=== PATIENT | male | born 1970 | race Caucasian/White ===

== ENCOUNTER 2016-08-03 10:58 | Emergency (ER) | payer BC ==
[2016-08-03 11:16] VITALS: BP 156/114
[2016-08-03] MEDS ORDERED: Azithromycin 250 MG Tab PO ONE (11:17)
[2016-08-03] MEDS ORDERED: cefTRIAXone 250 MG Vial IM ONE (11:17)
--- NOTE | 2016-08-03 11:17 | EDM.PDOC ---
ED HPI GENERAL MEDICAL PROBLEM - General Stated Complaint: PAIN WITH URINATION Time Seen by Provider: 08/03/16 11:11 Source of Information: Reports: Patient History Limitations: Reports: No Limitations - History of Present Illness INITIAL COMMENTS - FREE TEXT/NARRATIVE: HISTORY AND PHYSICAL: []45-year-old male presenting with penile pain after having sexual contact with a new partner History of Present Illness: [Relates no discharge but has dysuria and penile pain 2 days] Review of Systems: As per history of present illness and below otherwise all systems reviewed and negative. Past medical history: As per history of present illness and as reviewed below otherwise noncontributory. Surgical history: As per history of present illness and as reviewed below otherwise noncontributory. Social history: No reported history of drug or alcohol abuse. Family history: As per history of present illness and as reviewed below otherwise noncontributory. Physical exam: Alert oriented male answering questions appropriately, HEENT: Atraumatic, normocehpalic, pupils reactive, negative for conjunctival pallor or scleral icterus, mucous membranes moist, throat clear, neck supple, nontender, trachea midline. Lungs: Clear to auscultation, breath sounds equal bilaterally, chest non tender. Heart: S1S2, regular, negative for clicks, rubs, or JVD. Abdomen: Soft, nondistended, nontender. Negative for masses or hepatossplenmegaly. Negative for costovertebral tenderness. Pelvis: Stable nontender. Genitourinary: Deferred. Rectal: Deferred Extremities: Atraumatic, negative for cords or calf pain. Neurovascular unremarkable. Neuro: Awake, alert, oriented. Cranial nerves II through XII unremarkable. Cerebellum unremarkable. Motor and sensory unremarkable throughout. Exam nonfocal. Diagnostics: [Urinalysis, chlamydia and GC] Therapeutics: [Zithromax gram by mouth Rocephin 250 IM] Impression: [high risk sexual activity penile pain/discharge ] Plan: [home use condoms ] Definitive disposition and diagnosis as appropriate pending reevaluation and review of above. Onset: Sudden (yesterday) Duration: Day(s): (1) Location: Reports: Other (Penile pain) Quality: Reports: Burning Severity: Moderate Improves with: Reports: None Worsens with: Reports: None Context: Reports: Other (Sexual contact with a new partner) Penile Pain Score (Numeric/FACES): 4 - Related Data Allergies Allergy/AdvReac Type Severity Reaction Status Date / Time No Known Allergies Allergy Verified 08/03/16 11:16 Home Meds: Home Meds FLUoxetine [PROzac] 20 mg PO DAILY 09/24/13 [History] Triamterene/Hydrochlorothiazid [Triamterene-HCTZ 37.5-25 MG] 1 each PO DAILY [History] Past Medical History Other HEENT History: miniers dse. - Past Surgical History Other Musculoskeletal Surgeries/Procedures:: thumb surgery Social & Family History - Tobacco Use Smoking Status *Q: Current Every Day Smoker Years of Tobacco use: 20 Packs/Tins Daily: 1 - Alcohol Use Days Per Week of Alcohol Use: 0 - Recreational Drug Use Recreational Drug Use: No ED ROS GENERAL - Review of Systems Review Of Systems: ROS reveals no pertinent complaints other than HPI. ED EXAM, RENAL/ - Physical Exam Exam: See Below (see dictation) Course - Vital Signs Last Recorded V/S: Last Vital Signs Temp 36.2 C 08/03/16 11:12 Pulse 100 08/03/16 11:12 Resp 16 08/03/16 11:12 BP 156/114 H 08/03/16 11:12 Pulse Ox 98 08/03/16 11:12 - Orders/Labs/Meds Orders: Active Orders 24 hr Category Date Time Status CHLAMYDIA TRACHOMATIS/GC AMPLF Stat Lab 08/03/16 11:14 Ordered UA W/MICROSCOPIC [URIN] Stat Lab 08/03/16 11:10 Received Labs: Laboratory Tests 08/03/16 Range/Units 11:10 Urine Color YELLOW Urine Appearance CLEAR Urine pH 7.0 (5.0-8.0) Ur Specific [place] 1.015 (1.001-1.035) Urine Protein NEGATIVE (NEGATIVE) mg/dL Urine Glucose (UA) NEGATIVE (NEGATIVE) mg/dL Urine Ketones NEGATIVE (NEGATIVE) mg/dL Urine Occult Blood NEGATIVE (NEGATIVE) Urine Nitrite NEGATIVE (NEGATIVE) Urine Bilirubin NEGATIVE (NEGATIVE) Urine Urobilinogen 2.0 H (<2.0) EU/dL Ur Leukocyte Esterase NEGATIVE (NEGATIVE) Meds: Medications Discontinued Medications Generic Name Dose Route Start Last Admin Trade Name Freq PRN Reason Stop Dose Admin Azithromycin 1,000 mg 08/03/16 11:17 08/03/16 11:28 Zithromax PO 08/03/16 11:18 1,000 mg Q24H ONE Administration Ceftriaxone Sodium 250 mg 08/03/16 11:17 08/03/16 11:28 Rocephin IM 08/03/16 11:18 250 mg ONETIME ONE Administration Lidocaine HCl Confirm 08/03/16 11:23 Xylocaine-Mpf 1% Administered 08/03/16 11:24 Dose 2 mls @ as directed .ROUTE .STK-MED ONE Departure - Departure Time of Disposition: 11:50 Disposition: Home, Self-Care 01 Condition: good Clinical Impression: Dysuria - Discharge Information Additional Instructions: The following information is given to patients seen in the emergency department who are being discharged to home. This information is to outline your options for follow-up care. We provide all patients seen in our emergency department with a follow-up referral. The need for follow-up, as well as the timing and circumstances, are variable depending upon the specifics of your emergency department visit. If you don't have a primary care physician on staff, we will provide you with a referral. We always advise you to contact your personal physician following an emergency department visit to inform them of the circumstance of the visit and for follow-up with them and/or the need for any referrals to a consulting specialist. The emergency department will also refer you to a specialist when appropriate. This referral assures that you have the opportunity for followup care with a specialist. All of these measure are taken in an effort to provide you with optimal care, which includes your followup. Under all circumstances we always encourage you to contact your private physician who remains a resource for coordinating your care. When calling for followup care, please make the office aware that this follow-up is from your recent emergency room visit. If for any reason you are refused follow-up, please contact the [facility] emergency department at and asked to speak to the emergency department charge nurse. He received an injection of Rocephin You took tablets of Zithromax Use condoms during sexual activity Handout was given for the clinics in [facility] to establish primary care [address] [place] [address] [facility] [address] [place] [id number] - My Orders Last 24 Hours: My Active Orders 08/03/16 11:10 UA W/MICROSCOPIC [URIN] Stat 08/03/16 11:14 CHLAMYDIA TRACHOMATIS/GC AMPLF Stat - Assessment/Plan Last 24 Hours: My Active Orders 08/03/16 11:10 UA W/MICROSCOPIC [URIN] Stat 08/03/16 11:14 CHLAMYDIA TRACHOMATIS/GC AMPLF Stat
[2016-08-03] MEDS ORDERED: Lidocaine 1% 2 ML ONE (11:23)
== END 2016-08-03 11:58 | disposition home or self-care (01) ==
LOC: MW.ED 10:58
DX: N48.89 Other specified disorders of penis (principal); R30.0 Dysuria; Z72.51 High risk heterosexual behavior; F17.210 Nicotine dependence, cigarettes, uncomplicated; Z98.890 Other specified postprocedural states; Z79.899 Other long term (current) drug therapy
CPT/HCPCS: 81001; 87491; 87591; 96372; 99283; A9270; J0696

== ENCOUNTER 2016-08-10 03:50 | Emergency (ER) | payer BC ==
[2016-08-10] MEDS ORDERED: Proparacaine 0.5% Ophth Soln 15 ML Bottle EYERT STA (04:06)
[2016-08-10] MEDS ORDERED: cefTRIAXone 250 MG Vial IM ONE (04:51)
[2016-08-10] MEDS ORDERED: Azithromycin 250 MG Tab PO ONE (04:51)
[2016-08-10] MEDS ORDERED: Erythromycin Base 0.5% Ophth Oint 1 GM Tube EYELF ONE (04:51)
--- NOTE | 2016-08-10 04:57 | EDM.PDOC ---
ED HPI GENERAL MEDICAL PROBLEM - General Chief Complaint: Eye Problems Stated Complaint: PAIN IN RIGHT EYE Time Seen by Provider: 08/10/16 03:55 Source of Information: Reports: Patient History Limitations: Reports: No Limitations - History of Present Illness INITIAL COMMENTS - FREE TEXT/NARRATIVE: HISTORY AND PHYSICAL: History of present illness: [Patient complaining of right eye redness and mild lid swelling for about 36 hours. Patient recently had an STD for which he was treated. 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 It became mildly red, he rubbed it became more irritated with mild lid swelling and he now presents emergency department for evaluation. Patient is concerned that his STD might be associated with his "pinkeye. "] Review of systems: As per history of present illness and below otherwise all systems reviewed and negative. Past medical history: As per history of present illness and as reviewed below otherwise noncontributory. Surgical history: As per history of present illness and as reviewed below otherwise noncontributory. Social history: No reported history of drug or alcohol abuse. Family history: As per history of present illness and as reviewed below otherwise noncontributory. Physical exam: Left eye normal, right eye with trace lid swelling/edema, lids everted with no foreign body visible. Minimal scleral injection. No visible corneal foreign body or abnormality. Positive relief with Alcaine topical. No corneal abnormality visible with floor seen/Morales lamp evaluation. Slit-lamp examination reveals no gross abnormality of the cornea iris or anterior chamber. No cell and flare. Normal exam except for injection and minimal lid edema. HEENT: Normocephalic, atraumatic, pupils normal and symmetrical, supple neck, no meningismus, normal color Lungs: Normal and symmetrical chest wall excursion bilateral with no tachypnea or increased work of breathing, grossly normal chest exam Heart: No tachycardia in triage Abdomen: Normal-appearing, nondistended, no visible mass or asymmetry Pelvis: Normal-appearing Genitourinary: Deferred Rectal exam: Deferred Extremities: Atraumatic, normal use and range of motion, no visible evidence of gross neurovascular compromise Neuro: Awake, alert, oriented. Normal and appropriate mental status. Cranial nerves grossly unremarkable. Motor function normal. Nonfocal neurologic exam. Diagnostics: [Morales lamp exam with fluorescein by ERWIN Winn negative for diet uptake. Slit- lamp exam by ERWIN Winn unremarkable ] Therapeutics: [Antibiotics administered conjunctivitis] Impression: [] Plan: [Signs and symptoms consistent with conjunctivitis. Patient with recent STD. Covered for gonorrhea and Chlamydia. She with no evidence of chronic conjunctivitis symptoms have only been for about 36 hours and they're mild. No clinical evidence of hyperacute conjunctivitis as well. Patient stable, no further workup or treatment indicated at this time. He is aware of critical importance of close follow-up with ophthalmology and to return to the ED for any new severe or worsening symptoms Definitive disposition and diagnosis as appropriate pending reevaluation and review of above. Right Eye Pain Score (Numeric/FACES): 3 - Related Data Allergies Allergy/AdvReac Type Severity Reaction Status Date / Time No Known Allergies Allergy Verified 08/03/16 11:16 Home Meds: Home Meds FLUoxetine [PROzac] 20 mg PO DAILY 09/24/13 [History] Triamterene/Hydrochlorothiazid [Triamterene-HCTZ 37.5-25 MG] 1 each PO DAILY [History] Erythromycin Base [Erythromycin 0.5% Ophth Oint] 1 applic OP Q4HR #1 tube [Rx] Past Medical History HEENT History: Reports: Other (See Below) Other HEENT History: miniers dse. Cardiovascular History: Reports: Hypertension Respiratory History: Reports: None Gastrointestinal History: Reports: None Genitourinary History: Reports: None Musculoskeletal History: Reports: None Neurological History: Reports: None Psychiatric History: Reports: Anxiety Endocrine/Metabolic History: Reports: None Hematologic History: Reports: None Immunologic History: Reports: None Oncologic (Cancer) History: Reports: None Dermatologic History: Reports: None - Infectious Disease History Infectious Disease History: Reports: Chicken Pox - Past Surgical History Head Surgeries/Procedures: Reports: None Cardiovascular Surgical History: Reports: None Respiratory Surgical History: Reports: None GI Surgical History: Reports: None Male Surgical History: Reports: None Endocrine Surgical History: Reports: None Neurological Surgical History: Reports: None Musculoskeletal Surgical History: Reports: Amputation Other Musculoskeletal Surgeries/Procedures:: thumb surgery Dermatological Surgical History: Reports: None Social & Family History - Family History Family Medical History: Noncontributory - Tobacco Use Smoking Status *Q: Current Every Day Smoker Years of Tobacco use: 25 Packs/Tins Daily: 0.5 - Caffeine Use Caffeine Use: Reports: Coffee - Alcohol Use Days Per Week of Alcohol Use: 0 - Recreational Drug Use Recreational Drug Use: No ED ROS GENERAL - Review of Systems Review Of Systems: See Below ED EXAM GENERAL W FULL EYE - Physical Exam Exam: See Below (History of present illness) Course - Vital Signs Last Recorded V/S: Last Vital Signs Temp 36.2 C 08/10/16 05:25 Pulse 83 08/10/16 05:25 Resp 17 08/10/16 05:25 BP 161/105 H 08/10/16 05:25 Pulse Ox 100 08/10/16 05:25 - Orders/Labs/Meds Meds: Medications Discontinued Medications Generic Name Dose Route Start Last Admin Trade Name Jm PRN Reason Stop Dose Admin Azithromycin 1,000 mg 08/10/16 04:51 08/10/16 05:04 Zithromax PO 08/10/16 04:52 1,000 mg ONETIME ONE Administration Ceftriaxone Sodium 250 mg 08/10/16 04:51 08/10/16 05:06 Rocephin IM 08/10/16 04:52 250 mg ONETIME ONE Administration Erythromycin 1 gm 08/10/16 04:51 08/10/16 05:08 Erythromycin 0.5% Ophth Oint EYELF 08/10/16 04:52 1 gm ONETIME ONE Administration Lidocaine HCl Confirm 08/10/16 05:01 08/10/16 05:07 Xylocaine-Mpf 1% Administered 08/10/16 05:02 1 ml Dose Administration 2 mls @ as directed .ROUTE .STK-MED ONE Proparacaine HCl 1 ml 08/10/16 04:06 08/10/16 04:10 Proparacaine 0.5% Ophth Soln EYERT 08/10/16 04:07 1 ml NOW STA Administration Departure - Departure Time of Disposition: 04:52 Disposition: Home, Self-Care 01 Condition: Good Clinical Impression: Conjunctivitis - Discharge Information Prescriptions: Erythromycin Base [Erythromycin 0.5% Ophth Oint] 1 applic OP Q4HR #1 tube Instructions: Bacterial Conjunctivitis, [id number] Referrals: PCP,None [Primary Care Provider] - Forms: ED Department Discharge Additional Instructions: You have conjunctivitis. This may be a bacterial infection, a viral infection, a result of allergic exposure in your eye, or associated with an irritated or chemical conjunctivitis. You're being treated with ointment and medication to cover the possibility of a bacterial infection. Use ointment 1/4" in the affected eye 4 times a day and at bedtime. Follow up with Dr. Galeas (eye doctor ). Call in the morning for an appointment in one to 2 days return immediately for new severe or worsening symptoms.
[2016-08-10] MEDS ORDERED: Lidocaine 1% 2 ML ONE (05:01)
[2016-08-10 05:31] VITALS: BP 161/105
== END 2016-08-10 05:28 | disposition home or self-care (01) ==
LOC: MW.ED 03:50
DX: H10.9 Unspecified conjunctivitis (principal); I10 Essential (primary) hypertension; F17.210 Nicotine dependence, cigarettes, uncomplicated; F41.9 Anxiety disorder, unspecified; Z98.890 Other specified postprocedural states; Z79.899 Other long term (current) drug therapy
CPT/HCPCS: 99282; A9270; J0696; 99283

== ENCOUNTER 2017-02-21 10:09 | Emergency (ER) | payer BC ==
[2017-02-21] MEDS ORDERED: Ketorolac 60 MG/2 ML SDV IM ONE (10:23)
--- NOTE | 2017-02-21 10:23 | EDM.PDOC ---
ED HPI GENERAL MEDICAL PROBLEM - General Chief Complaint: Cardiovascular Problem Stated Complaint: TOOTHACHE Time Seen by Provider: 02/21/17 10:20 Source of Information: Reports: Patient - History of Present Illness INITIAL COMMENTS - FREE TEXT/NARRATIVE: HISTORY AND PHYSICAL: History of present illness: []Patient presents with dental pain right upper tooth discomfort with hot and cold sensitivity she rates pain 8 out of 10 nonradiating no swelling nothing for drainage No fever nausea vomiting chills sweats Review of systems: As per history of present illness and below otherwise all systems reviewed and negative. Past medical history: As per history of present illness and as reviewed below otherwise noncontributory. Surgical history: As per history of present illness and as reviewed below otherwise noncontributory. Social history: No reported history of drug or alcohol abuse. Family history: As per history of present illness and as reviewed below otherwise noncontributory. Physical exam: HEENT: Atraumatic, normocephalic, pupils reactive, negative for conjunctival pallor or scleral icterus, mucous membranes moist, throat clear, neck supple, nontender, trachea midline. No evidence of abscess at this time dentition is fairly healthy right upper tooth consistent with what appears to be a cavity causing the pain Lungs: Clear to auscultation, breath sounds equal bilaterally, chest nontender. Heart: S1S2, regular, negative for clicks, rubs, or JVD. Abdomen: Soft, nondistended, nontender. Negative for masses or hepatosplenomegaly. Negative for costovertebral tenderness. Pelvis: Stable nontender. Genitourinary: Deferred. Rectal: Deferred. Extremities: Atraumatic, negative for cords or calf pain. Neurovascular unremarkable. Neuro: Awake, alert, oriented. Cranial nerves II through XII unremarkable. Cerebellum unremarkable. Motor and sensory unremarkable throughout. Exam nonfocal. Diagnostics: []Clinical Therapeutics: []Toradol 60 IM Temporaries filling may benefit Amoxicillin Toradol Temporaries filling Follow-up with dentist as soon as possible Impression: []Dental pain Definitive disposition and diagnosis as appropriate pending reevaluation and review of above. - Related Data Allergies Allergy/AdvReac Type Severity Reaction Status Date / Time No Known Allergies Allergy Verified 02/21/17 10:17 Home Meds: Home Meds FLUoxetine [PROzac] 20 mg PO DAILY 09/24/13 [History] Triamterene/Hydrochlorothiazid [Triamterene-HCTZ 37.5-25 MG] 1 each PO DAILY [History] Losartan [Cozaar] 25 mg PO DAILY 02/21/17 [History] Past Medical History HEENT History: Reports: Other (See Below) Other HEENT History: guicho dsirais. Cardiovascular History: Reports: Hypertension Respiratory History: Reports: None Gastrointestinal History: Reports: None Genitourinary History: Reports: None Musculoskeletal History: Reports: None Neurological History: Reports: None Psychiatric History: Reports: Anxiety Endocrine/Metabolic History: Reports: None Hematologic History: Reports: None Immunologic History: Reports: None Oncologic (Cancer) History: Reports: None Dermatologic History: Reports: None - Infectious Disease History Infectious Disease History: Reports: Chicken Pox - Past Surgical History Head Surgeries/Procedures: Reports: None Cardiovascular Surgical History: Reports: None Respiratory Surgical History: Reports: None GI Surgical History: Reports: None Male Surgical History: Reports: None Endocrine Surgical History: Reports: None Neurological Surgical History: Reports: None Musculoskeletal Surgical History: Reports: Amputation Other Musculoskeletal Surgeries/Procedures:: thumb surgery Dermatological Surgical History: Reports: None Social & Family History - Family History Family Medical History: Noncontributory - Tobacco Use Smoking Status *Q: Current Every Day Smoker Years of Tobacco use: 25 Packs/Tins Daily: 0.5 - Caffeine Use Caffeine Use: Reports: Coffee - Alcohol Use Days Per Week of Alcohol Use: 0 - Recreational Drug Use Recreational Drug Use: No ED ROS GENERAL - Review of Systems Review Of Systems: ROS reveals no pertinent complaints other than HPI. ED EXAM, GENERAL - Physical Exam Exam: See Below Course - Vital Signs Last Recorded V/S: Last Vital Signs Temp 96.8 F 02/21/17 10:15 Pulse 93 02/21/17 10:15 Resp 12 02/21/17 10:15 BP 143/100 H 02/21/17 10:15 Pulse Ox 98 02/21/17 10:15 Departure - Departure Time of Disposition: 10:22 Disposition: Home, Self-Care 01 Condition: Good Clinical Impression: Pain, dental Referrals: PCP,None [Primary Care Provider] - Additional Instructions: The following information is given to patients seen in the emergency department who are being discharged to home. This information is to outline your options for follow-up care. We provide all patients seen in our emergency department with a follow-up referral. The need for follow-up, as well as the timing and circumstances, are variable depending upon the specifics of your emergency department visit. If you don't have a primary care physician on staff, we will provide you with a referral. We always advise you to contact your personal physician following an emergency department visit to inform them of the circumstance of the visit and for follow-up with them and/or the need for any referrals to a consulting specialist. The emergency department will also refer you to a specialist when appropriate. This referral assures that you have the opportunity for follow-up care with a specialist. All of these measure are taken in an effort to provide you with optimal care, which includes your follow-up. Under all circumstances we always encourage you to contact your private physician who remains a resource for coordinating your care. When calling for follow-up care, please make the office aware that this follow-up is from your recent emergency room visit. If for any reason you are refused follow-up, please contact the [facility] emergency department at and asked to speak to the emergency department charge nurse.
[2017-02-21 10:56] VITALS: BP 125/94
== END 2017-02-21 10:53 | disposition home or self-care (01) ==
LOC: MW.ED 10:09
DX: K08.89 Other specified disorders of teeth and supporting structures (principal); F17.210 Nicotine dependence, cigarettes, uncomplicated; Z79.899 Other long term (current) drug therapy; I10 Essential (primary) hypertension
CPT/HCPCS: 93005; 96372; 99282; J1885; 99283

== ENCOUNTER 2018-03-13 20:12 | Emergency (ER) | payer BC ==
[2018-03-13] MEDS ORDERED: predniSONE 20 MG Tab PO ONE (21:44)
--- NOTE | 2018-03-13 21:49 | EDM.PDOC ---
ED HPI GENERAL MEDICAL PROBLEM - General Chief Complaint: Lower Extremity Injury/Pain Stated Complaint: RIGHT FOOT PAIN Time Seen by Provider: 03/13/18 21:35 Source of Information: Reports: Patient History Limitations: Reports: No Limitations - History of Present Illness INITIAL COMMENTS - FREE TEXT/NARRATIVE: Resents reporting right lateral foot tenderness. The patient states that he noticed some tenderness in his right lateral foot yesterday and then at 3:00 this morning it woke him up in the night and has been worsening all day. He does not know of any injury. No personal or family history of gout. He does not drink alcohol. Pain is mostly with weightbearing. Right Feet Pain Score (Numeric/FACES): 9 - Related Data Allergies Allergy/AdvReac Type Severity Reaction Status Date / Time No Known Allergies Allergy Verified 03/13/18 20:50 Home Meds: Home Meds FLUoxetine [PROzac] 20 mg PO DAILY 09/24/13 [History] Triamterene/Hydrochlorothiazid [Triamterene-HCTZ 37.5-25 MG] 1 each PO DAILY [History] Losartan [Cozaar] 25 mg PO DAILY 02/21/17 [History] Indomethacin 50 mg PO TID #6 capsule 03/13/18 [Rx] predniSONE [Prednisone] 2 tab PO DAILY #6 tablet 03/13/18 [Rx] Past Medical History HEENT History: Reports: Other (See Below) Other HEENT History: miniers dse. Cardiovascular History: Reports: Hypertension Respiratory History: Reports: None Gastrointestinal History: Reports: None Genitourinary History: Reports: None Musculoskeletal History: Reports: None Neurological History: Reports: None Psychiatric History: Reports: Anxiety Endocrine/Metabolic History: Reports: None Hematologic History: Reports: None Immunologic History: Reports: None Oncologic (Cancer) History: Reports: None Dermatologic History: Reports: None - Infectious Disease History Infectious Disease History: Reports: Chicken Pox, Mononucleosis - Past Surgical History Head Surgeries/Procedures: Reports: None Cardiovascular Surgical History: Reports: None Respiratory Surgical History: Reports: None GI Surgical History: Reports: None Male Surgical History: Reports: None Endocrine Surgical History: Reports: None Neurological Surgical History: Reports: None Musculoskeletal Surgical History: Reports: Amputation Other Musculoskeletal Surgeries/Procedures:: thumb surgery Dermatological Surgical History: Reports: None Social & Family History - Family History Family Medical History: Noncontributory - Tobacco Use Smoking Status *Q: Current Every Day Smoker Years of Tobacco use: 25 Packs/Tins Daily: 0.5 - Caffeine Use Caffeine Use: Reports: Coffee - Recreational Drug Use Recreational Drug Use: No Review of Systems - Review of Systems Review Of Systems: ROS reveals no pertinent complaints other than HPI. ED EXAM, GENERAL - Physical Exam Exam: See Below Exam Limited By: No Limitations General Appearance: Alert, No Apparent Distress Nose: Normal Inspection Throat/Mouth: Normal Inspection Head: Atraumatic, Normocephalic Neck: Normal Inspection Respiratory/Chest: No Respiratory Distress Cardiovascular: Normal Peripheral Pulses GI/Abdominal: Soft Extremities: Other (Right lateral foot over the fifth MP joint and forefoot is mildly erythematous, mildly swollen and exquisitely tender. Full range of motion of all toes and ankle without hesitation or limitation) Neurological: Alert, Oriented Psychiatric: Normal Affect, Normal Mood Skin Exam: Warm, Dry, Intact, Normal Color, No Rash Course - Vital Signs Last Recorded V/S: Last Vital Signs Temp 36.6 C 03/13/18 20:48 Pulse 103 H 03/13/18 20:48 Resp 18 03/13/18 20:48 BP 133/90 03/13/18 20:48 Pulse Ox 98 03/13/18 20:48 Departure - Departure Time of Disposition: 21:45 Disposition: Home, Self-Care 01 Condition: Good Clinical Impression: Gout attack - Discharge Information Prescriptions: Indomethacin 50 mg PO TID #6 capsule predniSONE [Prednisone] 2 tab PO DAILY #6 tablet Referrals: PCP,None [Primary Care Provider] - Albin Beckham [Ordering Only Provider] - [facility] [Outside] Additional Instructions: 1. Prednisone 2 tabs once daily for three days 2. Indomethacin 50 mg three times a day with food next 2 days. 3. Follow up with primary care provider to discuss definitive management.
[2018-03-13 22:12] VITALS: BP 125/98
== END 2018-03-13 22:14 | disposition home or self-care (01) ==
LOC: MW.ED 20:12
DX: M10.9 Gout, unspecified (principal); I10 Essential (primary) hypertension; F17.210 Nicotine dependence, cigarettes, uncomplicated; Z79.899 Other long term (current) drug therapy
CPT/HCPCS: 99283; A9270

== ENCOUNTER 2018-10-08 17:38 | Emergency (ER) | payer BC ==
[2018-10-08 17:56] VITALS: BP 123/85; PULSE 93
[2018-10-08] MEDS ORDERED: Lidocaine 1% PF 2 ML SDV INJECT ONE (18:05)
[2018-10-08] MEDS ORDERED: cefTRIAXone 250 MG in Lidocaine 1% 1 ML IM ONE (18:05)
--- NOTE | 2018-10-08 18:08 | EDM.PDOC ---
ED HPI GENERAL MEDICAL PROBLEM - General Chief Complaint: Genitourinary Problem Stated Complaint: STD CHECK Time Seen by Provider: 10/08/18 17:43 Source of Information: Reports: Patient History Limitations: Reports: No Limitations - History of Present Illness INITIAL COMMENTS - FREE TEXT/NARRATIVE: HISTORY AND PHYSICAL: History of present illness: Patient is a 47-year-old male who presents to the emergency room with complaints of penile discharge and dysuria over the past several days. He states he is sexually active although has not been exposed to any STDs that he is aware of. States he is in a monogamous relationship and does not have any other sexual partners. Patient denies any fever, chills, headache, change in vision, syncope or near syncope. Denies any other GI or symptoms. Has not noted any blood in urine or stool. Denies any testicular pain, swelling or erythema. Denies any penile lesions. Patient has been eating and drinking appropriately. Review of systems: As per history of present illness and below otherwise all systems reviewed and negative. Past medical history: As per history of present illness and as reviewed below otherwise noncontributory. Surgical history: As per history of present illness and as reviewed below otherwise noncontributory. Social history: See social history for further information Family history: As per history of present illness and as reviewed below otherwise noncontributory. Physical exam: General: Well developed and well nourished 47 year old male. Alert and orientated. Nontoxic appearing and in no acute distress. HEENT: Atraumatic, normocephalic, pupils equal and reactive bilaterally, negative for conjunctival pallor or scleral icterus, mucous membranes moist, trachea midline. No drooling or trismus noted. No meningeal signs. No hot potato voice noted. Lungs: Clear to auscultation, breath sounds equal bilaterally, chest nontender. Heart: S1S2, regular rate and rhythm without overt murmur Abdomen: Soft, nondistended, nontender. Negative for masses. Negative for costovertebral tenderness. Pelvis: Stable nontender. Genitourinary: Refuses exam Skin: Intact, warm, dry. No lesions or rashes noted. Extremities: Atraumatic, moves all extremities per self without difficulty or deficits, negative for cords or calf pain. Neurovascular unremarkable. Neuro: Awake, alert, oriented. Cranial nerves II through XII unremarkable. Cerebellum unremarkable. Motor and sensory unremarkable throughout. Exam nonfocal. Diagnostics: UA/gonorrhea and chlamydia Therapeutics: Rocephin, azithromycin Prescription: None Impression: Encounter for STD testing Plan: 1. Please abstain from sexual intercourse until the lab results have returned. Always use protection to minimized risk of STD exposure 2. Take the medications as directed. The gonorrhea and chlamydia tests are send out labs, therefore will not be available for 2-3 business days. 3. Please follow-up with your primary care provider in the next 1-2 days. [facility] does offer free STD testing, please follow-up with them for further STD testing needs. Return to the ED as needed and as discussed. Definitive disposition and diagnosis as appropriate pending reevaluation and review of above. Generalized Pain Score (Numeric/FACES): 2 - Related Data Allergies Allergy/AdvReac Type Severity Reaction Status Date / Time No Known Allergies Allergy Verified 10/08/18 17:52 Home Meds: Home Meds FLUoxetine [PROzac] 20 mg PO DAILY 09/24/13 [History] Triamterene/Hydrochlorothiazid [Triamterene-HCTZ 37.5-25 MG] 1 each PO DAILY [History] Losartan [Cozaar] 25 mg PO DAILY 02/21/17 [History] Past Medical History HEENT History: Reports: Other (See Below) Other HEENT History: miniers dse. Cardiovascular History: Reports: Hypertension Respiratory History: Reports: None Gastrointestinal History: Reports: None Genitourinary History: Reports: None Musculoskeletal History: Reports: None Neurological History: Reports: None Psychiatric History: Reports: Anxiety Endocrine/Metabolic History: Reports: None Hematologic History: Reports: None Immunologic History: Reports: None Oncologic (Cancer) History: Reports: None Dermatologic History: Reports: None - Infectious Disease History Infectious Disease History: Reports: Chicken Pox - Past Surgical History Head Surgeries/Procedures: Reports: None Cardiovascular Surgical History: Reports: None Respiratory Surgical History: Reports: None GI Surgical History: Reports: None Male Surgical History: Reports: None Endocrine Surgical History: Reports: None Neurological Surgical History: Reports: None Musculoskeletal Surgical History: Reports: Amputation Other Musculoskeletal Surgeries/Procedures:: thumb surgery Dermatological Surgical History: Reports: None Social & Family History - Family History Family Medical History: Noncontributory - Tobacco Use Smoking Status *Q: Current Every Day Smoker Years of Tobacco use: 27 Packs/Tins Daily: 0.5 - Caffeine Use Caffeine Use: Reports: Soda - Recreational Drug Use Recreational Drug Use: No ED ROS GENERAL - Review of Systems Review Of Systems: ROS reveals no pertinent complaints other than HPI. ED EXAM, RENAL/ - Physical Exam Exam: See Below (See dictation) Course - Vital Signs Last Recorded V/S: Last Vital Signs Temp 97.4 F 10/08/18 17:53 Pulse 93 10/08/18 17:53 Resp 18 10/08/18 17:53 BP 123/85 10/08/18 17:53 Pulse Ox 97 10/08/18 17:53 - Orders/Labs/Meds Orders: Active Orders 24 hr Category Date Time Status CHLAMYDIA AND GONORRHEA BY [facility] Stat Lab 10/08/18 18:10 Received UA RFX ANDRA AND CULT IF INDIC [URIN] Stat Lab 10/08/18 18:00 Ordered Meds: Medications Discontinued Medications Generic Name Dose Route Start Last Admin Trade Name Jm PRN Reason Stop Dose Admin Azithromycin 1,000 mg 10/08/18 18:15 10/08/18 18:38 Zithromax PO 1,000 mg Q24H JEFF Administration Ceftriaxone Sodium 250 mg/ 1 mls @ 1 mls/sec 10/08/18 18:05 10/08/18 18:38 Lidocaine HCl IM 10/08/18 18:06 1 mls/sec ONETIME ONE Administration Lidocaine HCl 2 ml 10/08/18 18:05 10/08/18 18:40 Xylocaine-Mpf 1% INJECT 10/08/18 18:06 Not Given ONETIME ONE Departure - Departure Time of Disposition: 18:07 Disposition: Home, Self-Care 01 Clinical Impression: Screen for STD (sexually transmitted disease) - Discharge Information Instructions: Sexually Transmitted Disease, [id number] Referrals: PCP,Unknown [Primary Care Provider] - Forms: ED Department Discharge Additional Instructions: The following information is given to patients seen in the emergency department who are being discharged to home. This information is to outline your options for follow-up care. We provide all patients seen in our emergency department with a follow-up referral. The need for follow-up, as well as the timing and circumstances, are variable depending upon the specifics of your emergency department visit. If you don't have a primary care physician on staff, we will provide you with a referral. We always advise you to contact your personal physician following an emergency department visit to inform them of the circumstance of the visit and for follow-up with them and/or the need for any referrals to a consulting specialist. The emergency department will also refer you to a specialist when appropriate. This referral assures that you have the opportunity for follow-up care with a specialist. All of these measure are taken in an effort to provide you with optimal care, which includes your follow-up. Under all circumstances we always encourage you to contact your private physician who remains a resource for coordinating your care. When calling for follow-up care, please make the office aware that this follow-up is from your recent emergency room visit. If for any reason you are refused follow-up, please contact the [facility] Emergency Department at and asked to speak to the emergency department charge nurse. [facility] [address] [place] [id number] [facility] [address] [place] [id number] 1. Please abstain from sexual intercourse until the lab results have returned. Always use protection to minimized risk of STD exposure 2. Take the medications as directed. The gonorrhea and chlamydia tests are send out labs, therefore will not be available for 2-3 business days. 3. Please follow-up with your primary care provider in the next 1-2 days. [facility] does offer free STD testing, please follow-up with them for further STD testing needs. Return to the ED as needed and as discussed. - My Orders Last 24 Hours: My Active Orders 10/08/18 18:00 UA RFX ANDRA AND CULT IF INDIC [URIN] Stat 10/08/18 18:10 CHLAMYDIA AND GONORRHEA BY TMA Stat - Assessment/Plan Last 24 Hours: My Active Orders 10/08/18 18:00 UA RFX ANDRA AND CULT IF INDIC [URIN] Stat 10/08/18 18:10 CHLAMYDIA AND GONORRHEA BY TMA Stat
[2018-10-08] MEDS ORDERED: Azithromycin 250 MG Tab PO SCH (18:15)
== END 2018-10-08 18:49 | disposition home or self-care (01) ==
LOC: MW.ED 17:38
DX: Z11.3 Encounter for screening for infections with a predominantly sexual mode of transmission (principal); I10 Essential (primary) hypertension; F17.210 Nicotine dependence, cigarettes, uncomplicated; Z79.899 Other long term (current) drug therapy
CPT/HCPCS: 87491; 87591; 96372; 99283; A9270; J0696; J2001; 99282

== ENCOUNTER 2020-07-07 08:12 | Emergency (ER) | payer BC ==
[2020-07-07 09:27] LABS: CARBON DIOXIDE,CO2 23.9 mmol/L (21.0-32.0); POTASSIUM,K 3.7 mmol/L (3.5-5.1)
[2020-07-07 11:01] VITALS: PULSE 83
[2020-07-07] MEDS ORDERED: Sodium Chloride 0.9% 1,000 ML IV ONE (11:13)
--- NOTE | 2020-07-07 11:13 | EDM.PDOC ---
ED HPI GENERAL MEDICAL PROBLEM - General Chief Complaint: General Stated Complaint: POSSIBLE CO2 POISIONING Time Seen by Provider: 07/07/20 08:24 Source of Information: Reports: Patient History Limitations: Reports: No Limitations - History of Present Illness INITIAL COMMENTS - FREE TEXT/NARRATIVE: Patient is a 49-year-old male who presents today for nausea and fatigue. Patien t states that he was working in his car garage without the door open and thought he might have carbon monoxide poisoning. Patient states that entire since that day. Patient's not been acting the car had any other Exposure. Patient denies any headache fever chills or other complaints. Vomiting - Related Data Allergies Allergy/AdvReac Type Severity Reaction Status Date / Time No Known Allergies Allergy Verified 07/07/20 08:34 Home Meds: Home Meds FLUoxetine [PROzac] 20 mg PO DAILY 09/24/13 [History] Triamterene/Hydrochlorothiazid [Triamterene-HCTZ 37.5-25 MG] 1 each PO DAILY 09/24/13 [History] Losartan [Cozaar] 25 mg PO DAILY 02/21/17 [History] Past Medical History HEENT History: Reports: Other (See Below) Other HEENT History: miniers dse. Cardiovascular History: Reports: Hypertension Respiratory History: Reports: None Gastrointestinal History: Reports: None Genitourinary History: Reports: None Musculoskeletal History: Reports: None Neurological History: Reports: None Psychiatric History: Reports: Anxiety, Depression Endocrine/Metabolic History: Reports: None Hematologic History: Reports: None Immunologic History: Reports: None Oncologic (Cancer) History: Reports: None Dermatologic History: Reports: None - Infectious Disease History Infectious Disease History: Reports: Chicken Pox - Past Surgical History Head Surgeries/Procedures: Reports: None HEENT Surgical History: Reports: None Cardiovascular Surgical History: Reports: None Respiratory Surgical History: Reports: None GI Surgical History: Reports: None Male Surgical History: Reports: None Endocrine Surgical History: Reports: None Neurological Surgical History: Reports: None Musculoskeletal Surgical History: Reports: Amputation Other Musculoskeletal Surgeries/Procedures:: thumb surgery Dermatological Surgical History: Reports: None Social & Family History - Family History Family Medical History: No Pertinent Family History - Tobacco Use Tobacco Use Status *Q: Current Every Day Tobacco User Years of Tobacco use: 30 Packs/Tins Daily: 0.7 - Caffeine Use Caffeine Use: Reports: Soda - Recreational Drug Use Recreational Drug Use: No ED ROS GENERAL - Review of Systems Review Of Systems: See Below Constitutional: Reports: No Symptoms HEENT: Reports: No Symptoms Respiratory: Reports: No Symptoms Cardiovascular: Reports: No Symptoms Endocrine: Reports: No Symptoms GI/Abdominal: Reports: Nausea : Reports: No Symptoms Musculoskeletal: Reports: No Symptoms Skin: Reports: No Symptoms Neurological: Reports: No Symptoms Psychiatric: Reports: No Symptoms Hematologic/Lymphatic: Reports: No Symptoms Immunologic: Reports: No Symptoms ED EXAM, GENERAL - Physical Exam Exam: See Below Exam Limited By: No Limitations General Appearance: Alert, WD/WN, No Apparent Distress Eye Exam: Bilateral Eye: EOMI, PERRL Respiratory/Chest: No Respiratory Distress, Lungs Clear, Normal Breath Sounds Cardiovascular: Normal Peripheral Pulses, Regular Rate, Rhythm GI/Abdominal: Normal Bowel Sounds, Soft, Non-Tender Extremities: Normal Inspection, Normal Range of Motion Neurological: Alert, Oriented, Normal Cognition, Normal Gait Course - Vital Signs Last Recorded V/S: Last Vital Signs Temp 96.1 F L 07/07/20 08:20 Pulse 83 07/07/20 11:01 Resp BP 104/61 07/07/20 11:01 Pulse Ox 95 07/07/20 11:01 - Orders/Labs/Meds Orders: Active Orders 24 hr Category Date Time Status OSMOLALITY - SERUM [REF] Stat Lab 07/07/20 08:45 Received OSMOLALITY - URINE Stat Lab 07/07/20 09:40 Received UREA NITROGEN, URINE Stat Lab 07/07/20 09:40 Received Labs: Laboratory Tests 07/07/20 07/07/20 07/07/20 Range/Units 08:45 08:45 08:45 WBC 8.60 (4.0-11.0) K/uL RBC 5.23 (4.50-5.90) M/uL Hgb 16.2 (13.0-17.0) g/dL Hct 47.7 (38.0-50.0) % MCV 91.2 (80.0-98.0) fL MCH 31.0 (27.0-32.0) pg MCHC 34.0 (31.0-37.0) g/dL RDW Std Deviation 46.5 (28.0-62.0) fl RDW Coeff of Kristine 14 (11.0-15.0) % Plt Count 191 (150-400) K/uL MPV 9.80 (7.40-12.00) fL Neut % (Auto) 68.4 (48.0-80.0) % Lymph % (Auto) 14.4 L (16.0-40.0) % Mellette % (Auto) 16.9 H (0.0-15.0) % Eos % (Auto) 0.2 (0.0-7.0) % Baso % (Auto) 0.1 (0.0-1.5) % Neut # (Auto) 5.9 H (1.4-5.7) K/uL Lymph # (Auto) 1.2 (0.6-2.4) K/uL Mellette # (Auto) 1.5 H (0.0-0.8) K/uL Eos # (Auto) 0.0 (0.0-0.7) K/uL Baso # (Auto) 0.0 (0.0-0.1) K/uL Nucleated RBC % 0.0 /100WBC Nucleated RBCs # 0 K/uL ABG Carboxyhemoglobin 4.5 (0-15) % Sodium 138 (136-148) mmol/L Potassium 3.7 (3.5-5.1) mmol/L Chloride 100 (98-107) mmol/L Carbon Dioxide 23.9 (21.0-32.0) mmol/L BUN 22 H (7.0-18.0) mg/dL Creatinine 2.4 H (0.8-1.3) mg/dL Est Cr Clr Drug Dosing 36.81 mL/min Estimated GFR (MDRD) 29.2 ml/min Glucose 108 H (74-106) mg/dL Calcium 9.5 (8.5-10.1) mg/dL Total Bilirubin 0.5 (0.2-1.0) mg/dL AST 27 (15-37) IU/L ALT 25 (14-63) IU/L Alkaline Phosphatase 117 H (46-116) U/L Total Protein 8.5 H (6.4-8.2) g/dL Albumin 4.1 (3.4-5.0) g/dL Globulin 4.4 H (2.6-4.0) g/dL Albumin/Globulin Ratio 0.9 (0.9-1.6) Urine Color Urine Appearance Urine pH (5.0-8.0) Ur Specific Reader (1.001-1.035) Urine Protein (NEGATIVE) mg/dL Urine Glucose (UA) (NEGATIVE) mg/dL Urine Ketones (NEGATIVE) mg/dL Urine Occult Blood (NEGATIVE) Urine Nitrite (NEGATIVE) Urine Bilirubin (NEGATIVE) Urine Urobilinogen (<2.0) EU/dL Ur Leukocyte Esterase (NEGATIVE) Urine RBC (0-2/HPF) Urine WBC (0-5/HPF) Ur Epithelial Cells (NONE-FEW) Amorphous Sediment (NEGATIVE) Urine Bacteria (NEGATIVE) Ur Random Creatinine mg/dL Ur Random Sodium (40.0-220.0) mmol/L 07/07/20 07/07/20 Range/Units 09:40 09:40 WBC (4.0-11.0) K/uL RBC (4.50-5.90) M/uL Hgb (13.0-17.0) g/dL Hct (38.0-50.0) % MCV (80.0-98.0) fL MCH (27.0-32.0) pg MCHC (31.0-37.0) g/dL RDW Std Deviation (28.0-62.0) fl RDW Coeff of Kristine (11.0-15.0) % Plt Count (150-400) K/uL MPV (7.40-12.00) fL Neut % (Auto) (48.0-80.0) % Lymph % (Auto) (16.0-40.0) % Mellette % (Auto) (0.0-15.0) % Eos % (Auto) (0.0-7.0) % Baso % (Auto) (0.0-1.5) % Neut # (Auto) (1.4-5.7) K/uL Lymph # (Auto) (0.6-2.4) K/uL Mellette # (Auto) (0.0-0.8) K/uL Eos # (Auto) (0.0-0.7) K/uL Baso # (Auto) (0.0-0.1) K/uL Nucleated RBC % /100WBC Nucleated RBCs # K/uL ABG Carboxyhemoglobin (0-15) % Sodium (136-148) mmol/L Potassium (3.5-5.1) mmol/L Chloride (98-107) mmol/L Carbon Dioxide (21.0-32.0) mmol/L BUN (7.0-18.0) mg/dL Creatinine (0.8-1.3) mg/dL Est Cr Clr Drug Dosing mL/min Estimated GFR (MDRD) ml/min Glucose (74-106) mg/dL Calcium (8.5-10.1) mg/dL Total Bilirubin (0.2-1.0) mg/dL AST (15-37) IU/L ALT (14-63) IU/L Alkaline Phosphatase (46-116) U/L Total Protein (6.4-8.2) g/dL Albumin (3.4-5.0) g/dL Globulin (2.6-4.0) g/dL Albumin/Globulin Ratio (0.9-1.6) Urine Color YELLOW Urine Appearance CLEAR Urine pH 5.5 (5.0-8.0) Ur Specific Reader 1.015 (1.001-1.035) Urine Protein 30 H (NEGATIVE) mg/dL Urine Glucose (UA) NEGATIVE (NEGATIVE) mg/dL Urine Ketones NEGATIVE (NEGATIVE) mg/dL Urine Occult Blood NEGATIVE (NEGATIVE) Urine Nitrite NEGATIVE (NEGATIVE) Urine Bilirubin NEGATIVE (NEGATIVE) Urine Urobilinogen 0.2 (<2.0) EU/dL Ur Leukocyte Esterase NEGATIVE (NEGATIVE) Urine RBC 0-2 (0-2/HPF) Urine WBC 0-2 (0-5/HPF) Ur Epithelial Cells FEW (NONE-FEW) Amorphous Sediment LIGHT (NEGATIVE) Urine Bacteria FEW (NEGATIVE) Ur Random Creatinine 341.6 mg/dL Ur Random Sodium 49.0 (40.0-220.0) mmol/L Departure - Departure Time of Disposition: 11:11 Disposition: Home, Self-Care 01 Condition: Good Clinical Impression: Kidney disease - Discharge Information *PRESCRIPTION DRUG MONITORING PROGRAM REVIEWED*: Not Applicable *COPY OF PRESCRIPTION DRUG MONITORING REPORT IN PATIENT KINJAL: Not Applicable Instructions: Acute Kidney Injury, Adult Referrals: Carleen Martinez NP [Nurse Practitioner] - 07/09/20 10:30 am (Please arrive 30 minutes early wiht photo ID and insurance cards. The clinic will call and remind you of your appointment ) PCP,None [Primary Care Provider] - Forms: ED Department Discharge Additional Instructions: The following information is given to patients seen in the emergency department who are being discharged to home. This information is to outline your options for follow-up care. We provide all patients seen in our emergency department with a follow-up referral. The need for follow-up, as well as the timing and circumstances, are variable depending upon the specifics of your emergency department visit. If you don't have a primary care physician on staff, we will provide you with a referral. We always advise you to contact your personal physician following an emergency department visit to inform them of the circumstance of the visit and for follow-up with them and/or the need for any referrals to a consulting specialist. The emergency department will also refer you to a specialist when appropriate. This referral assures that you have the opportunity for follow-up care with a specialist. All of these measure are taken in an effort to provide you with optimal care, which includes your follow-up. Under all circumstances we always encourage you to contact your private physician who remains a resource for coordinating your care. When calling for follow-up care, please make the office aware that this follow-up is from your recent emergency room visit. If for any reason you are refused follow-up, please contact the [facility] at and asked to speak to the emergency department charge nurse. Please follow up with your primary care physician. If you do not have a primary care physician, see below: [facility] [address] [place] [id number] [facility] [address] [place] [address] You are seen today for weakness and some nausea. You want to have your carbon oxide level checked we checked it was in normal range for smoker. You do have some elevated creatinines with me be some new kidney disease with may be chronic. We would like you to follow-up with your primary doctor for further testing for this. If you have any trouble urinating increased weakness fatigue nausea vomiting please return to the ED. Sepsis Event Note (ED) - Evaluation Sepsis Screening Result: No Definite Risk - Focused Exam Vital Signs: Vital Signs Temp Pulse BP Pulse Ox 07/07/20 11:01 83 104/61 95 07/07/20 10:05 90 99/63 96 07/07/20 08:20 96.1 F L 100 108/75 99 - My Orders Last 24 Hours: My Active Orders 07/07/20 08:45 OSMOLALITY - SERUM [REF] Stat 07/07/20 09:40 OSMOLALITY - URINE Stat UREA NITROGEN, URINE Stat - Assessment/Plan Last 24 Hours: My Active Orders 07/07/20 08:45 OSMOLALITY - SERUM [REF] Stat 07/07/20 09:40 OSMOLALITY - URINE Stat UREA NITROGEN, URINE Stat Plan: Patient is a 49-year-old male presents today for nausea and weakness. Patient thought he had carbon oxide poisoning we did do a carbon oxide level was 4.5 patient is a smoker. Patient presents also elevated 2.4 we will have a baseline patient's creatinine. Patient looks well tolerating p.o. has no complaints. We did get a Hilda looks to be prerenal. We will have patient follow-up emergently with primary care in the next few days. Patient given strict return precautions.
[2020-07-07 12:00] VITALS: BP 107/80
== END 2020-07-07 12:15 | disposition home or self-care (01) ==
LOC: MW.ED 08:12
DX: N28.9 Disorder of kidney and ureter, unspecified (principal); I10 Essential (primary) hypertension; F17.200 Nicotine dependence, unspecified, uncomplicated; Z79.899 Other long term (current) drug therapy
CPT/HCPCS: 36415; 80053; 81001; 82375; 82570; 83930; 83935; 84300; 84540; 85025; 99283; J7030